=== PATIENT | female | born 1965 | race Two or more races ===

== ENCOUNTER 2020-04-16 18:13 | Emergency (ER) | payer OTHER ==
[2020-04-16 18:25] VITALS: BP 155/99; PULSE 96; TEMP 97.9; BMI 32.3
== END 2020-04-16 18:53 | disposition home or self-care (01) ==
LOC: JER 18:13
DX: R51.9 Headache, unspecified (principal); Z03.818 Encounter for observation for suspected exposure to other biological agents ruled out
CPT/HCPCS: 99283-25; C9803; U0003